=== PATIENT | female | born 1975 | race Two or more races ===

== ENCOUNTER 2017-02-05 02:19 | Emergency (ER) | payer SELFPAY ==
[~2017-02-05] VITALS: Ht 167.6 cm; Wt 49.9 kg
--- NOTE | 2017-02-05 02:50 | NUR ---
Pt requesting to consult with Plastic surgeon. Dr Mcdowell aware
[2017-02-05] MEDS ORDERED: ONDANSETRON ODT 4 MG TAB.RAPDIS SL ONE (03:00)
[2017-02-05] MEDS ORDERED: OXYCODONE/APAP 5-325 MG TABLET PO ONE (03:00)
[2017-02-05] MEDS ORDERED: CEFAZOLIN 1 G VIAL IM ONE (03:00)
[2017-02-05] MEDS ORDERED: TDAP DIPH,PERTUSS,TET VAC/PF 0.5 ML DISP.SYRIN IM ONE ×2 (03:00→03:05)
[2017-02-05] MEDS ORDERED: OXYCODONE/APAP 5-325 MG TABLET ONE (03:04)
[2017-02-05] MEDS ORDERED: ONDANSETRON ODT 4 MG TAB.RAPDIS ONE (03:04)
[2017-02-05] MEDS ORDERED: CEFAZOLIN 1 G VIAL ONE (03:05)
--- NOTE | 2017-02-05 03:20 | NUR ---
Dr Sanchez plastic surgeon into eval Pt
[2017-02-05] MEDS ORDERED: NEOMY/BACITRA/POLYMYXIN B OINT UD PACKET TP ONE ×2 (06:03→06:30)
[2017-02-05] MEDS ORDERED: SODIUM BICARBONATE 4.2 % (NEUT) 5 ML VIAL TP ONE (06:15)
[2017-02-05] MEDS ORDERED: LIDOCAINE 1%-EPI 1:100,000 20 ML VIAL TP ONE (06:15)
--- NOTE | 2017-02-05 06:17 | NUR ---
Patient discharged to home in stable conditon with boyfriend taking Pt. Written and verbal after care instructions given. Patient verbalizes understanding of instructions. Walked out of ER with steady gait
[2017-02-05 06:41] VITALS: BP 122/75
== END 2017-02-05 06:20 | disposition home or self-care (01) ==
LOC: ER 02:36
DX: S01.81XA Laceration without foreign body of other part of head, initial encounter (principal); S70.312A Abrasion, left thigh, initial encounter; S09.90XA Unspecified injury of head, initial encounter; R51 Headache; W10.9XXA Fall (on) (from) unspecified stairs and steps, initial encounter; Y93.89 Activity, other specified; Y99.8 Other external cause status; Y92.89 Other specified places as the place of occurrence of the external cause
CPT/HCPCS: 12013; 70450; 70486; 72125; 73551; 90471; 90715; 96372; 99284; A4663; J0690; J3490 ×2; Q0162

== ENCOUNTER 2017-02-19 13:21 | Emergency (ER) | payer SELFPAY ==
[~2017-02-19] VITALS: Ht 170.2 cm; Wt 50.3 kg
--- NOTE | 2017-02-19 14:20 | NUR ---
Patient discharged to home in stable conditon. Written and verbal after care instructions given. Patient verbalizes understanding of instructions.
== END 2017-02-19 14:22 | disposition home or self-care (01) ==
LOC: ER 13:21
DX: S06.0X0A Concussion without loss of consciousness, initial encounter (principal); W18.30XA Fall on same level, unspecified, initial encounter; Y93.89 Activity, other specified; Y99.8 Other external cause status; Y92.89 Other specified places as the place of occurrence of the external cause
CPT/HCPCS: A4663

== ENCOUNTER 2017-02-21 13:42 | Emergency (ER) | payer SELFPAY ==
--- NOTE | 2017-02-21 13:55 | NUR ---
PT CALLED IN FOR TRIAGE FROM WAITING ROOM, SITTING ON WHEELCHAIR, ACCOMPANIED BY A LADY WHO DID NOT IDENTIFY HERSELF, BUT WAS SHOWING SIGNS OF AGITATION AND VERBALIZING DISCONTENT OF HOW PT WAS PREVIOUSLY SEEN HERE 2 DAYS AGO AND "WAS JUST ALLOWED TO GO HOME IN DISCOMFORT.. AND THAT SHE IS NOW IN WORSE SHAPE... AND SHE IS GOING BLIND, TOO." PT ASSISTED TO RM 1 WAS ABLE TO TRANSFER TO [facility] WITH MINIMAL ASSISTANCE FROM ME. MOVEMENT IS SLOW AND CAUTIOUS. THE LADY HEARING THERAPY DIRECTOR REMAINED ANGRY AND DEMANDING AN MRI. AFTER SHE WAS TOLD BY A STAFF MEMBER THAT WE DIDN"T HAVE AN MRI HERE, SHE GOT ANGRYER, AND DEMANDED TO GO TO [facility] WITH PT RIGHT AWAY, STATING THAT THEY HAVE ALL MEDICAL BACKGROUNDS , THE PT BEING A [employer] DR[employer] HERSELF. ATTEMPTS TO ASK THIS LADY TO RECONSIDER TO STAY UNTIL DR SALMON COULD EVALUATE HER FOR TRANSFER FAILED. PT WAS ASKED WHAT SHE WANTED TO DO - AND EVENTUALLY SHE CONSENTED TO FOLLOW HER LADY HEARING THERAPY DIRECTOR AND LEFT WITHOUT BEING TRIAGED, AND WAS ASSISTED VIA WHEELCHAIR, TO THEIR TRANSPORTATION .
--- NOTE | 2017-02-21 13:55 | NUR ---
BP= 139/84 HR= 75 RR= 16 SAO2= 98% T= 98.4.
== END 2017-02-21 13:55 | disposition left against medical advice (07) ==
LOC: ER 13:45
DX: Z53.21 Procedure and treatment not carried out due to patient leaving prior to being seen by health care provider (principal)